=== PATIENT | male | born 1995 | race African-American/Black ===

== ENCOUNTER 2017-10-02 17:33 | Emergency (ER) | payer SELFPAY ==
[~2017-10-02] VITALS: Ht 177.8 cm; Wt 91.2 kg
[2017-10-02 17:52] VITALS: BP 142/93
== END 2017-10-02 21:10 | disposition left against medical advice (07) ==
LOC: ER 17:36
DX: R51 Headache (principal); R09.81 Nasal congestion; Z53.21 Procedure and treatment not carried out due to patient leaving prior to being seen by health care provider

== ENCOUNTER 2020-05-28 11:08 | Emergency (ER) | payer MEDICAID, OTHER ==
[~2020-05-28] VITALS: Ht 180.3 cm; Wt 106.1 kg
[2020-05-28 11:25] VITALS: BP 156/78
== END 2020-05-28 15:50 | disposition home or self-care (01) ==
LOC: ER 11:08
DX: U07.1 COVID-19 (principal); J20.8 Acute bronchitis due to other specified organisms
CPT/HCPCS: 36415; 71045; 87070; 87426; 87804; 87880